=== PATIENT | female | born 1965 | race Caucasian/White ===

== ENCOUNTER 2020-08-07 20:15 | Inpatient (IN) | payer SELFPAY ==
[~2020-08-07] VITALS: Ht 154.9 cm; Wt 64.0 kg
[~2020-08-07 20:15] MED LIST: AVALIDE 12.5 MG1 TAB PO; CATAPRES 0.1MG0.1 MG PO; METFORMIN ER500 MG PO
[2020-08-07] MEDS ORDERED: CATAPRES0.2 MG PO (23:11)
[2020-08-07] MEDS ORDERED: NORVASC 5MG5 MG/TAB PO (23:12)
[2020-08-07] MEDS ORDERED: HYZAAR 12.5 MG-1 TAB PO (23:17)
[2020-08-07 23:18] LABS: PROTHROMBIN TIME 11.3 SECONDS (9.7-12.8)
[2020-08-07 23:19] LABS: CHOLESTEROL RISK RATIO 6.4
[2020-08-07 23:32] LABS: PARTIAL THROMBOPLASTIN TIME 129.6 SECONDS (26.0-37.0)
[2020-08-07 23:33] LABS: TROPONIN-I 2.51 ng/mL (0.000-0.035)
--- NOTE | 2020-08-07 23:41 | NUR ---
report critical trop of 2.51 and ptt of 129.6, hep on hold for 1 hr and then will decrease by 2 unit when restarted per protocol. Renea MUNGUIA will notify cardiology. pt denies chest pain, did state when getting up to void felt palpations.
[2020-08-08] VITALS (13 sets, daily range): BP systolic 115–167; BP diastolic 48–89; PULSE 41–59; TEMP 98–98.9
--- NOTE | 2020-08-08 02:20 | NUR ---
2139- PT ADMIT FROM [facility] TRANS HERE PER EMS. IV TO RT AC/ HEPARIN RATE AT 12U/KG/HR UPON ARRIVAL. PT HAD 2 EPISODE OF PAIN IN LEFT ARM ALONG W TINGLING AND CHEST DISCOMFORT, DENIES NAUSEA OR DIAPHRETIC DURING EPISODE. CURRENTLY DENIES CHEST PAIN, SOA DIZZY OR LIGHTHEADED DOES FEEL SOME HEART PALPATIONS SOMETIMES BAMBI WHEN AMBULATING. ORDERS RECIEVD AFTER YE MUNGUIA AT [facility]. MED REC COMPLETE. TRENDING TROPONIN AND MONITORING HEP GTT PER PROTOCOL. DID RESTART CLONIDINE HOME MED TONIGHT D/T HYPERTENISON. PT STATES DID NOT TAKE DOSE YESTURDAY. NEEDS MET. GOT TO EAT BEFORE GOING NPO AT MIDNIGHT FOR AM TEST. FAMILY AWARE OF POC.
--- NOTE | 2020-08-08 05:32 | NUR ---
RESTED THROUGH THE NIGHT WO INCIDENT. NO C/O CHEST PAIN OR DISCOMFORT. CONT TO MONITOR TROPONINS AND HEPARIN GTT. NPO FOR TEST.
--- NOTE | 2020-08-08 05:48 | NUR ---
PT HEART RATE DROPPING TO 35 NOTIIFED YE MUNGUIA. NO NEW ORDERS. PT IS SOUNDLY SLEEPING.
--- NOTE | 2020-08-08 06:26 | NUR ---
0615- [facility] [employer] [facility] CALLS RN AND NOTIFIES OF BEING PT IVAN DOWN TO 35PULSE. RECOMMENDS STAT EKG FOR CHANGES MODERATE T WAVE , PROLONGED QT INTERVAL. STAT EKG ORDER. HOSPITLIST DR CARLSON CALLED, WILL SEE THIS AM NO NEW ORDERS. CARDIOLOGY DR RÍOS CONTACTED AND NOTIFED OF CHANGES, STATES KEEP ON HEPARIN DRIP, KEEP NPO AND WILL SEE THIS AM, NO NEW ORDERS. PT WAS RESTING QUIELTY, WOKE HER UP. DENIES CHEST PAIN, SOA OR DIZZY. NO NAUSEA.
[2020-08-08 07:07] LABS: BASO # 0.1 (0.0-0.2); BASO % 0.7 % (0.0-2.0); EOS # 0.2 (0.0-0.7); EOS % 2.1 % (0-4.0); GRAN # 3.3 (1.4-6.5); GRAN % 43.4 % (42.2-75.2); HEMATOCRIT 38.8 % (37.0-47.0); HEMOGLOBIN 12.9 g/dl (12.5-16.0); LYMPH # 3.4 (1.2-3.4); LYMPH % 44.9 % (20.0-51.0); MEAN CELL VOLUME 90 fl (80.0-100.0); MEAN CORPUSCULAR HEMOGLOBIN 30 pg (27.0-31.0); MEAN CORPUSCULAR HGB CONC 33 g/dl (33.0-37.0); MONO # 0.7 (0.1-0.6); MONO % 8.6 % (1.7-9.3); PLATELET COUNT 327 K/mm3 (130-400); RED BLOOD COUNT 4.33 M/mm3 (4.10-5.30); REDCELL DISTRIBUTION WIDTH-CV 12.4 % (11.5-14.5)
[2020-08-08 07:22] LABS: CALCIUM 8.8 mg/dL (8.4-10.2); CREATININE, serum 0.63 (0.52-1.25)
[2020-08-08 07:41] LABS: TROPONIN-I 2.75 ng/mL (0.000-0.035)
--- NOTE | 2020-08-08 08:47 | NUR ---
Patient alert and oriented. Said she didn't get much sleep last night. She ambulated to the bathroom independently. Denies any pain or SOB, vital signs are stable, HR running in the 40-50s, said it has been running low lately. Upon auscultation, heart sounds regular rate and rhythm, breath sounds clear in all flanagan. Patient has heart cath scheduled around noon today 08/08. She has no questions or concerns at this time. Will continue to monitor.
--- NOTE | 2020-08-08 09:54 | NUR ---
JENNIFER met with the patient, her (Jc, ph#[phone]), and daughter (Gogo) to discuss discharge plan. The patient lives in [place] with her . She reports independence with ADLs and does not have any DME. The patient's primary care provider is Jessy Watkins PA-C and she receives her medications from [facility] in . She reports no difficulties obtaining her meds. The patient does not have a DPOA-HC, but she was interested in obtaining a form. JENNIFER provided. The patient plans to return home with her family upon discharge. No additional needs at this time. *Discharge plan: home with *
--- NOTE | 2020-08-08 12:44 | NUR ---
First visit from the drapery seamstress. No needs right now.
--- NOTE | 2020-08-08 12:45 | NUR ---
Patient arrived back from laboratory sample carrier at this time, alert/oriented, vital signs stable, right radial TR band in place with 16cc of air, no signs of bleeding or hematoma, edcation provieded to patient and her daughter on procedure and plan of care
--- NOTE | 2020-08-08 15:08 | NUR ---
Patient reported an episode of a fast heart rate and that she had trouble taking a couple breaths. Nurse assessed the patient. VSS. HR 53. O2 sats 96 on room air. No complaints of pain and SOB when the nurse entered the room. Will continue to monitor. Call light within reach
--- NOTE | 2020-08-08 17:32 | NUR ---
Patient resting in bed, A&Ox3. VSS IV CDII. Radial band right side CDI, 12ml released from the band. Cares provided by Hanna, student nurse. No further needs expressed from the patient. Call light within reach
--- NOTE | 2020-08-08 18:06 | NUR ---
Patient resting in bed watching tv. 16 mL of air removed from R radial band. No bleeding at the site, area CDI, VSS. Student nurse instructed patient to minimize use of right wrist. Patient reports no chest pain, SOB, palpitations or discomfort, states "looking forward to going home tomorrow." Call light within reach.
--- NOTE | 2020-08-08 22:57 | NUR ---
PT ALERT AND OX4. DENIES ANY SOA, CHEST PAIN OR DIZZY. NO PALPATIONS NOTED PER PT. FEELING MUCH BETTER. RADIAL BAND RELEASE W NO ACTIVE BLEEDIND, SPLINT REMAINS IN PLACE RT HAND/WRIST. IV INT, FLUSHED. POC DISCUSSED. PM MEDS GIVEN. NEEDS MET.
[2020-08-09 04:41] VITALS: BP 134/58; PULSE 48; TEMP 98.6
--- NOTE | 2020-08-09 05:39 | NUR ---
RESTED THROUGH THE NIGHT WO INCIDENT. NEEDS MET. RR SITE REMAINS W NO HEMOTOMA, PULSES INTACT. NO C/O OF CHEST PAIN OR DISCOMFORT OVERNIGHT. NEEDS MET.
[2020-08-09 07:48] VITALS: BP 142/65; PULSE 44; TEMP 98.5
--- NOTE | 2020-08-09 08:33 | NUR ---
Pt assessment complete. Pt is sitting up in bed upon entry, she is A/O x3. Her breathing is even and unlabored on RA. Pt denies SOB. No dizziness. Pt denies pain or chest pain. NO N/V. R radial CDI, no bruising or edema. POC discussed with patient. Call light within reach.
[2020-08-09] MEDS ORDERED: ASPIRIN E.C. 8181 MG PO (08:38)
[2020-08-09] MEDS ORDERED: LIPITOR 80MG80 MG PO (08:38)
[2020-08-09] MEDS ORDERED: BRILINTA90 MG PO (08:38)
[2020-08-09] MEDS ORDERED: GLUCOPHAGE1000 MG PO (08:58)
[2020-08-09] MEDS ORDERED: PLAVIX 75MG TAB75 MG PO (08:58)
[2020-08-09] MEDS ORDERED: CATAPRES 0.1MG0.1 MG PO (08:58)
--- NOTE | 2020-08-09 11:45 | NUR ---
Discharge paperwork and instructions reviewed with patient. All questions answered at this time. IV to RAC dc'd catheter tip intact. RUE restrictions reviewed with patient. Pt wheeled out of facility at this time.
== END 2020-08-09 11:45 | disposition home or self-care (01) | DRG 247 ==
LOC: MEDICAL 20:15
PROVIDERS: Student in an Organized Health Care Education/Training Program; ADMIT Student in an Organized Health Care Education/Training Program
PROC: 027034Z Dilation of Coronary Artery, One Artery with Drug-eluting Intraluminal Device, Percutaneous Approach (ICD-10-PCS; principal; 2020-08-08)
PROC: 4A023N7 Measurement of Cardiac Sampling and Pressure, Left Heart, Percutaneous Approach (ICD-10-PCS; 2020-08-08)
PROC: B2111ZZ Fluoroscopy of Multiple Coronary Arteries using Low Osmolar Contrast (ICD-10-PCS; 2020-08-08)
DX: I21.4 Non-ST elevation (NSTEMI) myocardial infarction (principal); I10 Essential (primary) hypertension; E11.9 Type 2 diabetes mellitus without complications; F17.210 Nicotine dependence, cigarettes, uncomplicated; E87.6 Hypokalemia; R00.1 Bradycardia, unspecified; K21.9 Gastro-esophageal reflux disease without esophagitis; M19.90 Unspecified osteoarthritis, unspecified site; Z79.82 Long term (current) use of aspirin; Z20.822 Contact with and (suspected) exposure to COVID-19
CPT/HCPCS: 99223-AI; 99233-AI; 99239; C1725; C1769; C1874; C1887; C9600; J1644; J1815; J2250; J3010; Q9967